=== PATIENT | male | born 1985 | race Caucasian/White ===

== ENCOUNTER 2018-04-23 02:41 | Inpatient (IN) ==
[2018-04-23] MEDS ORDERED: Acetaminophen 325 MG Tablet PO PRN ×2 (05:31→10:27)
[2018-04-23] MEDS ORDERED: Aluminum/Magnesium/Simethacone Susp 30 ML UDC PO PRN (05:31)
[2018-04-23] MEDS ORDERED: LORazepam 1 MG Tablet PO PRN (05:33)
--- NOTE | 2018-04-23 09:27 | P.HPPSY ---
Provisional Diagnosis Admission Date: April 23, 2018 04:25 [place] I.: 1. Suspected chronic depressive disorder 2. Polysubstance abuse [place] II.: Deferred Competence Certification of Person's Competence To Provide Express and Informed Consent I have personally examined Javier Armendariz, a person being served at [facility] on, April 23, 2018 0924. Express and informed consent means consent voluntarily given in writing, by a competent person, after sufficient explanation and disclosure of the subject matter involved to enable the person to make a knowing and willful decision without any element of force, fraud, deceit, duress, or other form of constraint or coercion. This person is 18 years of age or older, is not now known to be incompetent to consent to treatment with a guardian advocate, and does not have a health care surrogate or proxy currently making medical treatment decisions. I have found this person to be one of the following: [X] Competent to provide express and informed consent, as defined above, for voluntary admission to this facility and is competent to provide express and informed consent for treatment. He/she has the consistent capacity to make well reasoned, willful, and knowing decisions concerning his or her medical or mental health treatment. The person fully and consistently understands the purpose of the admission for examination/placement and is fully capable of personally exercising all rights assured under [place] Incompetent to provide express and informed consent to voluntary admission, and this is incompetent to provide express and informed consent to treatment. The person must be transferred to involuntary status and a petition for a guardian advocate filed with the Circuit Court. [] Refusing to provide express and informed consent to voluntary admission but is competent to provide express and informed consent for treatment. The person must be discharged or transferred to involuntary status. Form shall be completed within 24 hours of a person's arrival at the receiving facility and filed in the clinical record of each person: 1. Admitted on a voluntary basis 2. Permitted to provide express and informed consent to his/her own treatment 3. Allowed to transfer from involuntary to voluntary status 4. Prior to permitting a person to consent to his or her own treatment after having been previously found incompetent to consent to treatment. History of Present Illness Capacity: Has capacity Chief Complaint: Suicide attempt by cutting History of Present Illness: Mr. Armendariz is a 33-year-old male with no reported past psychiatric history who presents in transfer from [facility] under a Brian act. Documentation from outside hospital reviewed. 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 Wound was repaired with suture, and the patient was transferred to [place] once medically cleared. Documentation from outside hospital reviewed. Reviewing our electronic medical record, I see no previous psychiatric contact within our system. Patient seen and examined with nurse. Chart reviewed. Case discussed with nursing staff. On my examination today, the patient says that he cut himself because he was scared of his mother and her disapproval. The patient has reportedly been renting parents house and has been stealing items out of the shed to [facility] to fuel his drug habit. Patient says that fear of mother's scorn was the proximate cause of his presenting suicide attempt, but he has been contemplating suicide for the last month or so. He describes chronic low level depression of several years' duration and says that he gets bored very easily. He is fairly anhedonic on a chronic basis. His sleep is somewhat chronically poor. He does not describe any severe depressive symptoms, nor can I elicit any hypomanic or manic symptoms. He denies any audiovisual hallucinations. He denies any suicidal or homicidal ideation ongoing. The remainder of the psychiatric ROS is negative. Patient complains of numbness in left face involving the left lower jaw and ear and pain in the self injury site but otherwise has no acute physical complaints. Past psychiatric history: The patient denies a history of psychiatric diagnosis. He denies a history of inpatient or outpatient psychiatric treatment. He denies a history of suicide attempts. He does endorse a history of nonsuicidal self-injurious behavior, beginning at age 10 and most recently 2 months ago. He describes this self injury, which consists of scratching himself on his forearms as a form of "emotional release." He denies a history of violent behavior. Family history: The patient reports some sort of mental illness in his maternal grandmother. He denies a family history of suicide. Chemical dependency history: The patient reports that he uses substances because he finds "life boring in general." He says that he uses crack cocaine, cannabis, occasional alcohol and more recently has branched into heroin. His longest sober time is on the order of a week. He denies any history of DTs or seizures. Social history: The patient is living in house rented from parents. He has a grade 8 education and subsequently obtained his GED. 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 He is with no children. He denies any history. Denies any legal history. Denies any access to guns or firearms. Denies any jainism or spiritual beliefs. Denies any history of trauma. Past medical history: Patient denies any significant medical history. Per transfer information, patient may have a history of seizures. Medications: The patient takes no home medications. Allergies: To morphine. - Inpatient Certification I certify that the inpatient services were ordered in accordance with Medicare regulations governing the order. This includes certification that hospital inpatient services are reasonable and necessary and in the case of services not specified as inpatient-only under 42 CFR 419.22(n), that they are appropriately provided as inpatient services in accordance to with the 2-midnight benchmark under 43 CFR 412.3(e) I certify that inpatient psychiatric hospital services are medically necessary. Evaluation and treatment and/or diagnostic testing are expected to improve the patient's condition. The patient needs on a daily basis, active treatment furnished directly by or requiring the supervision of inpatient psychiatric facility personnel. Estimated Total Length of Stay (Days): 5 (3-5) Plans for Post Hospital Care: Not yet determined Review of Systems All other systems reviewed negative except as stated in HPI [facility] - History History Provided By: Patient - Tobacco History Second Hand Smoke Exposure: Yes Tobacco Use In Past 30 Days: Yes Smoking Status: Current every day smoker Tobacco Type: Cigarettes - Alcohol History How Often Do You Have a Drink Containing Alcohol: 4 or more times a week - Substance Use History Substance History: Active Abuse - Substance Use Type Crack/Cocaine Status: Active Route Used: Inhalation Frequency: daily Reason for Use: Feels Good, Get High Heroin Status: Active Route Used: Intravenously Reason for Use: Feels Good, Get High Marijuana Status: Active Route Used: Inhalation Reason for Use: Calm Down - Travel History Recent Travel in the USA Within the Last 8 Weeks: No Recent Travel Out of the Country Within the Last 8 Weeks: No - Immunization History Tetanus Immunization: <5 Years Tetanus Immunization Year if Known: 2017 Hx Influenza Vaccine This Season: No Quality Measures - Patient Strengths Patient's strengths (minimum of 2): In a monitored setting. Verbally fluent. Medications and Allergies Active Medications: Active Medications Acetaminophen (Tylenol) 650 mg PO Q4H PRN PRN Reason: Pain 1-5 or Temp >101F Al Hydrox/Mg Hydrox/Simethicone (Mag-Al Plus Susp Liq) 30 ml PO Q6H PRN PRN Reason: DYSPEPSIA Al Hydroxide/Mg Hydroxide (Milk Of Magnesia Liq) 30 ml PO Q12H PRN PRN Reason: Mild Constipation Flumazenil (Romazecon Inj) 0.2 mg IV.PUSH Q1M PRN PRN Reason: OVERSEDATION Folic Acid (Folic Acid) 1 mg PO DAILY [facility] Stop: 04/28/18 08:59 Lorazepam (Ativan) 1 mg PO Q4H PRN PRN Reason: for CIWA 8-10 Lorazepam (Ativan Inj) 2 mg IV.PUSH Q2H PRN PRN Reason: for CIWA 11-14 Lorazepam (Ativan Inj) 2 mg IV.PUSH Q1H PRN PRN Reason: for CIWA 15-20 Lorazepam (Ativan Inj) 2 mg IV.PUSH Q15M PRN PRN Reason: for CIWA > 20 Lorazepam (Ativan Inj) 1 mg IV.PUSH Q4H PRN PRN Reason: for CIWA 8-10 Lorazepam (Ativan) 2 mg PO Q2H PRN PRN Reason: for CIWA 11-14 Melatonin (Melatonin) 5 mg PO HS PRN PRN Reason: INSOMNIA Multivitamins/Minerals (Theragran-M) 1 tab PO DAILY [facility] Stop: 04/28/18 08:59 Nicotine (Habitrol 21 Mg Patch.24 Hr) 1 patch T-DERMAL DAILY PRN PRN Reason: Nicotine craving Patch Removal (Remove Old Patch) 1 each T-DERMAL DAILY [facility] Thiamine HCl (Vitamin B1) 100 mg PO DAILY [facility] Allergies Allergy/AdvReac Type Severity Reaction Status Date / Time morphine Allergy Unknown Unknown Unverified 04/23/18 05:31 Results - Labs Labs: Laboratories from outside hospital reviewed: Urine toxicology positive for cocaine and cannabinoids. CMP reveals normal renal and hepatic function. Electrolytes are essentially normal. CBC reveals mild normocytic anemia with a hemoglobin of 12.4. Platelets and white blood cells are within normal limits. X-ray of the chest revealed only old left eighth and ninth rib fractures with no acute process. EKG was read as normal sinus rhythm with a QTC of 397 ms, not prolonged. Exam Vital signs: Vital Signs 04/23/18 05:14 Temperature 97.1 F L Pulse Rate 68 Respiratory Rate 17 Blood Pressure 126/80 Pulse Oximetry 100 Intake & Output 04/22/18 04/23/18 04/23/18 18:59 06:59 18:59 Weight 65.2 kg Other: Weight On Admission 65.2 kg Narrative: Physical examination completed by ED provider at outside hospital. On my examination today, the patient appears to be in no acute physical distress. No motor abnormalities noted. Laceration on left neck has been bandaged. No signs of intoxication or withdrawal noted. Labs and vital signs reviewed: Mental Status Examination Appearance: Disheveled Consciousness: Alert Orientation: x4 Motor Activity: Normal gait Speech: Unremarkable Language: Adequate Fund of Knowledge: Adequate Attention and Concentration: Adequate Memory: Unremarkable (Grossly intact on clinical exam) Mood: Other (Chronic dysphoria) Affect: Appropriate Thought Process & Associations: Intact Thought Content: Appropriate Hallucination Type: None Delusion Type: None Suicidal Ideation: No Suicidal Plan: No Suicidal Intention: No Homicidal Ideation: No Homicidal Plan: No Homicidal Intention: No Insight: Fair Judgment: Impulsive Assessment and Plan - Assessment (1) Chronic depressive disorder Code(s): F32.9 - Major depressive disorder, single episode, unspecified Status : Acute (2) Polysubstance abuse Code(s): F19.10 - Other psychoactive substance abuse, uncomplicated Status: Acute - Plan Plan: This is a 33-year-old male with psychiatric history as detailed above who presents in transfer from outside hospital under a Brian act. On my evaluation today, the patient says that he made his presenting self injury because he feared the disapproval of his mother secondary to pawning parents belongings to buy drugs. He denies any ongoing suicidal ideation presently but describes chronic low level dysphoria possibly consistent with a chronic depressive disorder. He also has substance use issues. Patient requires psychiatric hospitalization at this time to monitor for any ongoing acute impairments in safety and also to initiate course of treatment and arrange for outpatient follow-up to try to reduce patient's risk for self-harm going forward. Admit inpatient. Voluntary status. We will observe the patient on the high acuity unit for the rest of the day and consider transfer to lower acuity unit at change of shift this evening if behavior remains appropriate. Add Remeron for management of low mood. Atarax as needed for anxiety. Melatonin as needed for sleep. R/B/A for medications discussed with patient. CIWA scale with Ativan for the management of any withdrawal. Thiamine and folate. Seizure precautions. Consult to the hospitalist and wound care nurse. Vitals every shift. Counselor to see. Disposition planning. Collateral information. Estimated length of stay: 3-5 days. Justification for Continued Inpatient Stay: See above Discharge Planning: Pending outcome of observation Request Healthcare Surrogate/Guardian Advocate?: No
[2018-04-23] MEDS: Folic Acid 1 MG Tablet PO SCH (10:13)
[2018-04-23] MEDS: Multivitamin/Minerals Therapeutic Tablet PO SCH (10:14)
--- NOTE | 2018-04-23 10:34 | P.CON ---
History of Present Illness Service: Psychiatry Consult date: 04/23/18 Reason for Consult: Medical management Primary Care Provider: No Primary Care Physician Chief Complaint: Left neck pain and numbness History of Present Illness: 33-year-old male with no significant past medical history was admitted to inpatient psychiatry under Brian act following a suicidal attempt. Patient was initially admitted to [facility] after a self-inflicted wound to the left neck with a paper box maker. Wound was repaired with suture, and the patient was transferred to [place] once medically cleared. Patient states, he has been depressed lately and has contemplated suicide. Patient states over the past 12-24 hours he has been having some numbness extending up to his left ear as well as left temporal region. He also complains of headache. Otherwise has no visual impairments. His Vitals remain stable. Review of Systems All other systems reviewed negative except as stated in HPI [facility] - History History Provided By: Patient - Medical History Medical History: Medical History (Last Updated 04/23/18 @ 10:38 by Louie Carroll MD) Patient denies medical problems - Surgical History Surgical History: Surgical History (Last Updated 04/23/18 @ 10:38 by Louie Carroll MD) No history of previous surgery - Tobacco History Second Hand Smoke Exposure: Yes Tobacco Use In Past 30 Days: Yes Smoking Status: Current every day smoker Tobacco Type: Cigarettes - Alcohol History How Often Do You Have a Drink Containing Alcohol: 4 or more times a week - Substance Use History Substance History: Active Abuse - Substance Use Type Crack/Cocaine Status: Active Route Used: Inhalation Frequency: daily Reason for Use: Feels Good, Get High Heroin Status: Active Route Used: Intravenously Reason for Use: Feels Good, Get High Marijuana Status: Active Route Used: Inhalation Reason for Use: Calm Down - Travel History Recent Travel in the [place] Within the Last 8 Weeks: No Recent Travel Out of the Country Within the Last 8 Weeks: No - Immunization History Tetanus Immunization: <5 Years Tetanus Immunization Year if Known: 2017 Hx Influenza Vaccine This Season: No Medications and Allergies Active Medications: Active Medications Acetaminophen (Tylenol) 650 mg PO Q4H PRN PRN Reason: PAIN 1-10 AND/OR FEVER >101F Al Hydrox/Mg Hydrox/Simethicone (Mag-Al Plus Susp Liq) 30 ml PO Q6H PRN PRN Reason: DYSPEPSIA Al Hydroxide/Mg Hydroxide (Milk Of Son Francis) 30 ml PO Q12H PRN PRN Reason: Mild Constipation Flumazenil (Romazecon Inj) 0.2 mg IV.PUSH Q1M PRN PRN Reason: OVERSEDATION Folic Acid (Folic Acid) 1 mg PO DAILY [facility] Stop: 04/28/18 08:59 Last Admin: 04/23/18 10:13 Dose: 1 mg Hydroxyzine HCl (Atarax) 50 mg PO Q6H PRN PRN Reason: ANXIETY Lorazepam (Ativan) 1 mg PO Q4H PRN PRN Reason: for CIWA 8-10 Lorazepam (Ativan Inj) 2 mg IV.PUSH Q2H PRN PRN Reason: for CIWA 11-14 Lorazepam (Ativan Inj) 2 mg IV.PUSH Q1H PRN PRN Reason: for CIWA 15-20 Lorazepam (Ativan Inj) 2 mg IV.PUSH Q15M PRN PRN Reason: for CIWA > 20 Lorazepam (Ativan Inj) 1 mg IV.PUSH Q4H PRN PRN Reason: for CIWA 8-10 Lorazepam (Ativan) 2 mg PO Q2H PRN PRN Reason: for CIWA 11-14 Melatonin (Melatonin) 5 mg PO HS PRN PRN Reason: INSOMNIA Mirtazapine (Remeron) 15 mg PO HS [facility] Multivitamins/Minerals (Theragran-M) 1 tab PO DAILY [facility] Stop: 04/28/18 08:59 Last Admin: 04/23/18 10:14 Dose: 1 tab Nicotine (Habitrol 21 Mg Patch.24 Hr) 1 patch T-DERMAL DAILY PRN PRN Reason: Nicotine craving Last Admin: 04/23/18 10:15 Dose: 1 patch Patch Removal (Remove Old Patch) 1 each T-DERMAL DAILY [facility] Last Admin: 04/23/18 10:16 Dose: Not Given Thiamine HCl (Vitamin B1) 100 mg PO DAILY [facility] Allergies Allergy/AdvReac Type Severity Reaction Status Date / Time morphine Allergy Unknown Unknown Unverified 04/23/18 05:31 Physical Exam Vital signs: Vital Signs 04/23/18 05:14 Temperature 97.1 F L Pulse Rate 68 Respiratory Rate 17 Blood Pressure 126/80 Pulse Oximetry 100 Intake & Output 04/22/18 04/23/18 04/23/18 18:59 06:59 18:59 Weight 65.2 kg Other: Weight On Admission 65.2 kg Narrative: GENERAL: NAD SKIN: Warm and dry. HEAD: Normocephalic. EYES: No scleral icterus. No injection or drainage. NECK: Supple, trachea midline. No JVD or lymphadenopathy. Dressing over self- inflicted left neck wound CARDIOVASCULAR: Regular rate and rhythm without murmurs, gallops, or rubs. RESPIRATORY: Breath sounds equal bilaterally. No accessory muscle use. GASTROINTESTINAL: Abdomen soft, non-tender, nondistended. MUSCULOSKELETAL: No cyanosis, or edema. BACK: Nontender without obvious deformity. No CVA tenderness. Assessment and Plan - Plan 33-year-old man with Suicidal attempt Mood disorder Management per psychiatry Continue with current Brian act Self-inflicted wound Paresthesia associated with wound Continue with wound care Patient was medically clear for discharge after wound repair, therefore unlikely nerve damage Tylenol as needed for pain/headache Tobacco abuse Tobacco counseling cessation provided Continue nicotine patch Alcohol abuse Alcohol counseling cessation provided Continue CIWA protocol, rally pack Polysubstance abuse Patient was extensively counseled against DVT prophylaxis: Encourage ambulation Thank you for this consultation, [facility] will sign off and reconsult as needed
--- NOTE | 2018-04-23 14:25 | P.PNWCN ---
Wound Care Nurse Consult Description: Wound consult ordered by for wound management Communicated with: Karlie GLOVER [id number] Recommendation: Please refer to incisional wound care guidelines Additional information: Patient was not seen today by wound care team.Textile Machinery Instructor spoke with Karlie GLOVER [id number] states suture to left neck are dry intact with no signs or symptoms of infection.Dressing clean dry intact. Wound/Pressure Injury - Wound Left Neck Wound Type: Laceration
[2018-04-23] MEDS: Mirtazapine 15 MG Tablet PO SCH (20:46)
[2018-04-23] MEDS: Melatonin 5 MG Tablet PO PRN (20:47)
[2018-04-24 05:20] VITALS: O2SAT 97
[2018-04-24 10:05] LABS: Chol/HDL Ratio 2.83 Ratio
[2018-04-24] MEDS: Folic Acid 1 MG Tablet PO SCH (10:36)
[2018-04-24] MEDS: Multivitamin/Minerals Therapeutic Tablet PO SCH (10:41)
--- NOTE | 2018-04-24 13:36 | P.PNPSY ---
Subjective Chief Complaint: Suicide attempt by cutting Remarks: Patient seen and examined with nurse. Chart reviewed. Case discussed with nursing staff. No behavioral issues noted overnight. Patient tells me today that he is acclimatizing well to the new unit. He denies any ongoing suicidal ideation. He says that he met with his mother last night and it was a productive session. He says that he has a better outlook. Slept better with Remeron. He speaks at length about his plans for after discharge. Although I am hopeful that his improvement is genuine, I do get the sense that he may just be telling this provider what he wants to hear in service of obtaining dong discharge. Indeed, the patient does express hope that he will be released before the weekend. Denies side effects from medications. No physical complaints. Vital Signs Temp Pulse Resp BP Pulse Ox 04/24/18 05:18 97.4 F L 62 16 142/67 H 97 04/23/18 18:34 97.9 F 71 18 136/73 98 Intake and Output 04/24/18 04/24/18 04/24/18 06:59 14:59 22:59 Other: Weight 65.2 kg Laboratory Results - last 24 hr 04/24/18 08:49 Triglycerides 199 H Cholesterol 153 LDL Cholesterol, Calc 59 HDL Cholesterol 54.0 Cholesterol/HDL Ratio 2.83 Labs reviewed. Review of Systems All other systems reviewed negative except as stated in HPI Mental Status Examination Appearance: Appropriate Consciousness: Alert Orientation: x4 Motor Activity: Normal gait, Other (No motor abnormalities noted. No signs of any withdrawal noted. Neck wound appears clean and dry with no signs of infection.) Speech: Unremarkable Language: Adequate Fund of Knowledge: Adequate Attention and Concentration: Adequate Memory: Unremarkable (Grossly intact on clinical exam) Mood: Appropriate Affect: Appropriate Thought Process & Associations: Intact Thought Content: Appropriate Hallucination Type: None Delusion Type: None Suicidal Ideation: No Suicidal Plan: No Suicidal Intention: No Homicidal Ideation: No Homicidal Plan: No Homicidal Intention: No Insight: Fair Judgment: Impulsive Assessment and Plan - Assessment (1) Chronic depressive disorder Code(s): F32.9 - Major depressive disorder, single episode, unspecified Status : Acute (2) Polysubstance abuse Code(s): F19.10 - Other psychoactive substance abuse, uncomplicated Status: Acute - Plan Plan: Continue Remeron as ordered. Hospitalist input noted and appreciated. EEG for possible reported history of seizure is pending. There has been no evidence of seizure on the unit; perhaps the patient has a history of withdrawal seizures if any. Continue other medications and care as ordered. Justification for Continued Inpatient Stay: Monitoring for ongoing impairments in safety, none noted. Discharge Planning: Pending outcome of observation. Counselor to call mother for collateral. Depending on this collateral, possible discharge tomorrow, Saturday versus after the weekend. Request Healthcare Surrogate/Guardian Advocate?: No
[2018-04-24 16:18] LABS: Hemoglobin A1c 5.3 % (4.3-6.0)
--- NOTE | 2018-04-24 19:31 | MG ---
cc: Tawanna Culp MD EEG [phone] REFERRING PHYSICIAN: Jessica INDICATIONS: In room 2614 with hyperventilation, photic good effort. Awake, drowsy, asleep. Transferred as a Brian Act from [facility] as a trauma alert, harm to himself on thiamine, folic acid. Looks good. DESCRIPTION OF RECORD: Somewhat attenuated background, predominantly of theta frequency, 4-5 Hz variable, noted to be snoring. Variable background between normal alpha at times, and there is some theta frequency. EKG looks sinus. Photic stimulation, there is a driving response. Hyperventilation is attempted. Fairly good effort, good follow through. No epileptiform features. IMPRESSION: Overall, normal appearing electroencephalogram. No evidence of any epileptiform features in this recording. Clinical correlation. Tawanna Culp MD DF/ct , 07:12 PM , 07:16 PM
[2018-04-24] MEDS: Mirtazapine 15 MG Tablet PO SCH (21:27)
[2018-04-24] MEDS: Melatonin 5 MG Tablet PO PRN (21:29)
[2018-04-25 06:12] VITALS: BP 131/78; PULSE 56; RESP 15; TEMP 97.3
[2018-04-25] MEDS: Multivitamin/Minerals Therapeutic Tablet PO SCH (10:22)
[2018-04-25] MEDS: Folic Acid 1 MG Tablet PO SCH (10:22)
--- NOTE | 2018-04-25 11:31 | P.DSPSY ---
Psychiatry Discharge Summary Inpatient Psychiatric care?: Yes Advance Directives: No Reason for Unknown:: Other Other Reason for Unknown: does not have one Mental Health Advance Directive: No Health Care Proxy: No - Admission Admission Date: April 23, 2018 04:25 - Admission Diagnosis (1) Chronic depressive disorder Code(s): F32.9 - Major depressive disorder, single episode, unspecified (2) Polysubstance abuse Code(s): F19.10 - Other psychoactive substance abuse, uncomplicated Brief History: Mr. Armendariz is a 33-year-old male with no reported past psychiatric history who presents in transfer from [facility] under a Brian act. Documentation from outside hospital reviewed. 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 Wound was repaired with suture, and the patient was transferred to [facility] once medically cleared. Documentation from outside hospital reviewed. Reviewing our electronic medical record, I see no previous psychiatric contact within our system. Patient seen and examined with nurse. Chart reviewed. Case discussed with nursing staff. On my examination today, the patient says that he cut himself because he was scared of his mother and her disapproval. The patient has reportedly been renting parents house and has been stealing items out of the shed to pawn to fuel his drug habit. Patient says that fear of mother's scorn was the proximate cause of his presenting suicide attempt, but he has been contemplating suicide for the last month or so. He describes chronic low level depression of several years' duration and says that he gets bored very easily. He is fairly anhedonic on a chronic basis. His sleep is somewhat chronically poor. He does not describe any severe depressive symptoms, nor can I elicit any hypomanic or manic symptoms. He denies any audiovisual hallucinations. He denies any suicidal or homicidal ideation ongoing. The remainder of the psychiatric ROS is negative. Patient complains of numbness in left face involving the left lower jaw and ear and pain in the self injury site but otherwise has no acute physical complaints. Past psychiatric history: The patient denies a history of psychiatric diagnosis. He denies a history of inpatient or outpatient psychiatric treatment. He denies a history of suicide attempts. He does endorse a history of nonsuicidal self-injurious behavior, beginning at age 10 and most recently 2 months ago. He describes this self injury, which consists of scratching himself on his forearms as a form of "emotional release." He denies a history of violent behavior. Family history: The patient reports some sort of mental illness in his maternal grandmother. He denies a family history of suicide. Chemical dependency history: The patient reports that he uses substances because he finds "life boring in general." He says that he uses crack cocaine, cannabis, occasional alcohol and more recently has branched into heroin. His longest sober time is on the order of a week. He denies any history of DTs or seizures. Social history: The patient is living in house rented from parents. He has a grade 8 education and subsequently obtained his GED. 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 He is with no children. He denies any history. Denies any legal history. Denies any access to guns or firearms. Denies any orthodox or spiritual beliefs. Denies any history of trauma. Past medical history: Patient denies any significant medical history. Per transfer information, patient may have a history of seizures. Medications: The patient takes no home medications. Allergies: To morphine. Tobacco Use In Past 30 Days: Yes How Often Do You Have a Drink Containing Alcohol: 4 or more times a week Hospital Course: Patient was admitted to a locked psychiatric facility for evaluation and treatment. All safety precautions were maintained throughout the visit. Patient was followed by a psychiatric provider as well as a transplant case manager. Patient was monitored in the inpatient setting with no behavioral disturbances. Upon examination this morning patient states that he is feeling good and denies any suicidal ideations. His counselor has spoken with his mother who is agreeable to him coming home states she can monitor him over the weekend. Patient advises that if he should become suicidal again he would contact either the hotline or talk to his mother. At this time, I believe he has reached maximum therapeutic benefit from this inpatient admission. He does not appear to be a danger to himself or others at this time. He will be discharged home to his mother's care with instructions to return to this facility should his condition worsen. - Discharge Discharge Date: 04/25/18 Discharge Disposition: Home - Discharge Instructions Discharge Diet: Regular Diet Activities You Can Perform: Regular- No Restrictions - Discharge Time > 30 minutes Mental Status Examination Appearance: Appropriate Consciousness: Alert Orientation: x4 Motor Activity: Normal gait, Other (No motor abnormalities noted. No signs of any withdrawal noted. Neck wound appears clean and dry with no signs of infection.) Speech: Unremarkable Language: Adequate Fund of Knowledge: Adequate Attention and Concentration: Adequate Memory: Unremarkable (Grossly intact on clinical exam) Mood: Appropriate Affect: Appropriate Thought Process & Associations: Intact Thought Content: Appropriate Hallucination Type: None Delusion Type: None Suicidal Ideation: No Suicidal Plan: No Suicidal Intention: No Homicidal Ideation: No Homicidal Plan: No Homicidal Intention: No Insight: Fair Judgment: Impulsive Discharge/Advance Care Plan - Results Vital Signs: Last Vital Signs Temp 97.3 F L 04/25/18 06:11 Pulse 56 L 04/25/18 06:11 Resp 15 04/25/18 06:11 BP 131/78 04/25/18 06:11 Pulse Ox 97 04/25/18 06:11 Lab Results: Abnormal Lab Results 04/24/18 08:49 Hemoglobin A1c 5.3 Laboratory Results Hemoglobin A1c 5.3 % (4.3-6.0) 04/24/18 08:49 Triglycerides 199 mg/dL (42-150) H 04/24/18 08:49 Cholesterol 153 mg/dL (120-200) 04/24/18 08:49 LDL Cholesterol, Calc 59 mg/dL (0-99) 04/24/18 08:49 HDL Cholesterol 54.0 mg/dL (40.0-60.0) 04/24/18 08:49 Summary of Procedures: none Pending Results: None - Medications Number of antipsychotic medications at discharge: 0 - Discharge Care Plan Goals to Promote Your Health: * To prevent worsening of your condition and complications * To maintain your health at the optimal level Directions to Meet Your Goals: Take your medications as prescribed Follow your dietary instruction Follow activity as directed Keep your appointments as scheduled Take your immunizations and boosters as scheduled If your symptoms worsen call your PCP, if no PCP go to Urgent Care Center or Emergency Room For 24/ questions related to your inpatient stay or results of tests pending at discharge, please contact [facility] at Smoking is Dangerous to Your Health. Avoid second hand smoking
== END 2018-04-25 18:41 | disposition home or self-care (01) ==
LOC: H270 04:25 → H260 14:24
PROVIDERS: ADMIT Psychiatry & Neurology Psychiatry; ATTEND Psychiatry & Neurology Psychiatry